=== PATIENT | female | born 1950 | race Caucasian/White ===

== ENCOUNTER 2019-10-11 02:29 | Emergency (ER) | payer MEDICARE, BC ==
[~2019-10-11] VITALS: Ht 157.5 cm; Wt 71.2 kg
[2019-10-11 02:29] VITALS: BP 155/92
--- NOTE | 2019-10-11 02:53 | NUR ---
BIBS FROM HOME TO ER BED 3. AAOX4. NO RESP DISTRESS NOTED, BREATHING EVEN AND UNLABORED. AMBULATORY. C/O L JAW PAIN X 1 WEEK PROGRESSIVELY GETTING WORST. JAW ROM INTACT. NO CLICKING NOTED UPON OPENING AND CLOSING. NOTED SWELLING ON L TMJ UPON PALPATION. RATES PAIN 5/10 ACHING AND SORE SENSATION. AWAITING MD FOR EVAL.
--- NOTE | 2019-10-11 03:14 | NUR ---
Patient discharged to home in stable condition. Written and verbal after care instructions given. Patient verbalizes understanding of instruction. Pt ambulatory with a steady gait
== END 2019-10-11 03:14 | disposition home or self-care (01) ==
LOC: ER 02:33
DX: H70.92 Unspecified mastoiditis, left ear (principal); I10 Essential (primary) hypertension; E11.9 Type 2 diabetes mellitus without complications